=== PATIENT | male | born 1965 | race Caucasian/White ===

== ENCOUNTER 2022-03-13 10:53 | Emergency (ER) | payer MEDICAID ==
[~2022-03-13] VITALS: Ht 172.7 cm; Wt 117.9 kg
[2022-03-13 10:57] VITALS: BP_SYST 152
[2022-03-13] MEDS ORDERED: DIPH-TET-PERTUS Vaccine 0.5 ML VIAL (ADACEL) I.M. ONE (11:45)
[2022-03-13] MEDS ORDERED: BACITRACIN 1 GM OINT TP ONE (12:46)
[2022-03-13 12:58] VITALS: BP_SYST 155
== END 2022-03-13 13:00 ==
LOC: SED 10:53
DX: Z02.89 Encounter for other administrative examinations (principal); R11.0 Nausea; F41.9 Anxiety disorder, unspecified; I10 Essential (primary) hypertension; F17.200 Nicotine dependence, unspecified, uncomplicated; Z88.0 Allergy status to penicillin; Z79.899 Other long term (current) drug therapy
CPT/HCPCS: 90715; 99283